=== PATIENT | female | born 1990 | race Caucasian/White ===

== ENCOUNTER 2018-05-23 17:45 | Inpatient (IN) | payer MEDICAID ==
[2018-05-23] MEDS ORDERED: GLUCOSE GEL 15 GRAM TUBE BUCCAL (19:30)
[2018-05-23] MEDS ORDERED: GLUCAGON 1 MG INJ IM (19:30)
[2018-05-23] MEDS ORDERED: GLUCOSE GEL 15 GRAM TUBE PO ×2 (19:30)
[2018-05-23] MEDS ORDERED: DEXTROSE 50% 50 ML SYRINGE IV ×2 (19:30)
[2018-05-23] MEDS: ACCU-CHEK XX ×3 (20:31→22:43)
[2018-05-23 21:29] LABS: HEMOGLOBIN A1C 5.9 % (0-5.9)
[2018-05-23] MEDS: INSULIN ASPART [NOVOLOG] 3 ML PEN SC (22:45)
[2018-05-24] MEDS: ACCU-CHEK XX ×6 (08:53→19:28)
[2018-05-24] MEDS: PRENATAL VITAMIN PO (08:54)
[2018-05-24] MEDS: INSULIN ASPART [NOVOLOG] 3 ML PEN SC ×3 (08:54→17:05)
[2018-05-24 20:06] LABS: COLLECTION PERIOD 24 hrs
[2018-05-24 20:53] LABS: VOLUME 1500 mls
[2018-05-24 21:22] LABS: CREATININE 0.41 mg/dl (0.44-1.00)
[2018-05-24 21:26] LABS: COLLECTION PERIOD 24 hrs; SCRET 0.41 mg/dl (0.44-1.00); VOLUME 1500 ml/24hrs
[2018-05-24 21:27] LABS: CREATININE CLEARANCE 191.3 mls/min (84.0-162.0); CREATININE,URINE RANDOM 75.28 mg/dl (20-320)
== END 2018-05-24 21:00 | disposition home or self-care (01) | DRG 833 ==
LOC: L-D 17:45
PROVIDERS: Obstetrics & Gynecology
DX: O24.410 Gestational diabetes mellitus in pregnancy, diet controlled (principal); Z3A.11 11 weeks gestation of pregnancy
CPT/HCPCS: 82565; 82575; 82962; 83036; 84156; 93005

== ENCOUNTER 2018-10-08 17:21 | Outpatient (CLI) | payer MEDICAID ==
[2018-10-08 19:26] LABS: ADD MAN DIFF? NO
[2018-10-08 19:29] LABS: WHITE BLOOD COUNT 9.7 10^3/ul (4.8-10.8)
[2018-10-08 19:29] LABS: BASOPHILS % 0.1 % (0.0-2.0); EOSINOPHILS # 0.1 10^3/ul (0.0-0.5); EOSINOPHILS % 0.8 % (0.0-7.0); HEMOGLOBIN 10.6 g/dl (12.0-16.0); LYMPHOCYTES # 1.6 10^3/ul (0.8-2.9); MEAN CORPUSCULAR HEMOGLOBIN 27.4 pg (29.0-33.0); MEAN CORPUSCULAR HGB CONC 33.1 g/dl (32.0-37.0); MEAN CORPUSCULAR VOLUME 82.7 fl (82.0-101.0); MEAN PLATELET VOLUME 10.5 fl (7.4-10.4); MONOCYTE # 0.7 10^3/ul (0.3-0.9); MONOCYTES % 7.1 % (0.0-11.0); NEUTROPHIL # 7.2 10^3/ul (1.6-7.5); NEUTROPHILS % 74.5 % (39.0-77.0); PLATELET COUNT 217 10^3/UL (140-415); RED BLOOD COUNT 3.87 10^6/ul (4.20-5.40); RED CELL DISTRIBUTION WIDTH 13.1 % (11.5-14.5)
[2018-10-08 19:33] LABS: ADD UMIC YES; UR ASCORBIC ACID NEGATIVE (NEGATIVE); UR BACTERIA FEW /HPF (NONE SEEN); UR BILIRUBIN (Dip) NEGATIVE (NEGATIVE); UR BLOOD (Dip) NEGATIVE (NEGATIVE); UR CLARITY SLIGHTLY CLOUDY (CLEAR); UR COLOR YELLOW (YELLOW); UR GLUCOSE (Dip) NEGATIVE (NEGATIVE); UR KETONES (Dip) 1+ mg/dL (NEGATIVE); UR LEUKOCYTE ESTERASE (Dip) 1+ Leu/ul (NEGATIVE); UR MUCUS FEW /HPF (NONE SEEN); UR NITRITE (Dip) NEGATIVE (NEGATIVE); UR RBC 1 /HPF (0-5); UR SPECIFIC GRAVITY (Dip) 1.017 (1.003-1.030); UR SQUAMOUS EPITHELIAL CELL FEW /HPF (FEW); UR TOTAL PROTEIN (Dip) NEGATIVE (NEGATIVE); UR UROBILINOGEN (Dip) NEGATIVE (NEGATIVE); UR WBC 2 /HPF (0-5)
== END 2018-10-08 21:30 | disposition home or self-care (01) ==
LOC: OBT 17:21 → L-D 17:22 → OBT 21:30
DX: O24.410 Gestational diabetes mellitus in pregnancy, diet controlled (principal); Z3A.31 31 weeks gestation of pregnancy
CPT/HCPCS: 76817; 76818; 81001; 85025; 85460; 86850; 86900; 86901

== ENCOUNTER 2018-11-23 17:16 | Inpatient (IN) | payer MEDICAID ==
[2018-11-23] MEDS: LACTATED RINGER'S 1,000 ML IV ×2 (20:32→21:34)
[2018-11-23] MEDS: ACCU-CHEK XX (23:00)
[2018-11-24] MEDS: LACTATED RINGER'S 1,000 ML IV (04:18)
== END 2018-11-24 11:00 | disposition home or self-care (01) | DRG 833 ==
LOC: OBT 17:16 → L-D 17:17 → OBT 19:30 → L-D 19:30
PROVIDERS: Obstetrics & Gynecology
DX: O41.03X0 Oligohydramnios, third trimester, not applicable or unspecified (principal); Z3A.38 38 weeks gestation of pregnancy; O24.419 Gestational diabetes mellitus in pregnancy, unspecified control
CPT/HCPCS: 76815; 76818; 82962